=== PATIENT | female | born 1995 | race Asian ===

== ENCOUNTER → 2021-04-22 08:31 | Outpatient (BNVA) | payer SELFPAY | DX: Z02.1 Encounter for pre-employment examination (principal) ==

== ENCOUNTER 2022-10-04 21:22 | Emergency (ER) | payer OTHER, SELFPAY ==
[2022-10-04 21:35] VITALS: BP 100/65; PULSE 95; RESP 18; TEMP 36.4; O2SAT 99; BMI 18.6
--- NOTE | 2022-10-04 21:46 | ED_ITS ---
HPI - Medical Clearance General Chief complaint: Body Fluid Exposure Stated complaint: needle stick Time Seen by Provider: 10/04/22 21:45 Source: patient Mode of arrival: ambulatory Limitations: no limitations History of Present Illness HPI Narrative: 26-year-old female who presents emergency department for evaluation of a needlestick that occurred while she was injecting the patient with subcutaneous Lovenox. The patient states that the needlestick happened at 17:56 hours today. She states that she was not aware of the needlestick initially and she did take her blood soften washing hands. When she got home from work she looked at her left thumb and notice that there was a puncture wound there, she then realized that she accidentally stuck herself with the subcutaneous needle, therefore she came to the emergency department for evaluation. The patient has no medical problems. She does not take any medications. She reports that the source patient was admitted for altered mental status, UTI is waiting for placement. The source patient is on Suboxone. Source patient is [id number]. She is a 72-year-old female patient was admitted on 09/16/2022 for altered mental status secondary to urinary tract infection. Patient has a history of UTIs, depression and opiate use disorder. She is on Suboxone. No other information is available on the patient. Related Information Allergies Allergy/AdvReac Type Severity Reaction Status Date / Time No Known Allergies Allergy Verified 10/04/22 21:27 [facility] Social History Social History Advance Directives: No Advance Directives Information Provided: No Physical Exam Vital Signs: Vital Signs: Last Vital Signs Temp 97.5 F 10/04/22 21:35 Pulse 95 10/04/22 21:35 Resp 18 10/04/22 21:35 BP 100/65 10/04/22 21:35 Pulse Ox 99 10/04/22 21:35 O2 Del Method 10/04/22 21:35 BMI result Body Mass Index 18.6 Vital signs were normal General: Awake, alert, female patient, very pleasant cooperative, answers all questions appropriately Extremity: The patient has a very small puncture wound to the ulnar lateral aspect of the distal phalanx of the left thumb. 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 The patient was injecting subcutaneous Lovenox and at t hat time she felt something in her left thumb. She states she did take her gloves off and wash her hands with soap after the incident. She was not aware that she had a needlestick until she got home and she examined rhythm carefully and noticed a small puncture wound. I did tell the patient that this is probably a very low risk needlestick for HIV, hepatitis-B and hepatitis C. the patient states she has been vaccinated against hepatitis-B so this is not a concern. The source patient does have a history of opiate use disorder and is on Suboxone. The hospitalist is aware of the exposure and will test the source patient for HIV, hepatitis-B and hepatitis-C. I did discuss the risks and benefits of HIV post exposure prophylaxis and after this discussion, the patient states that she does want to start post exposure prophylaxis. Patient was ordered to get Truvada and raltegravir here in the emergency department. Patient was given a 4 day dispense pack. She was advised to stay on this medication until she can follow-up with occupational health to determine if the source patient is HIV positive. Differential Diagnosis Differential diagnosis includes but is not limited to hospital-acquired needlestick injury with risk for HIV, hepatitis-B and hepatitis C, infection. Discharge Plan Discharge Clinical Impression: Exposure to body fluid due to accidental hypodermic needlestick injury Patient Disposition: Home, Self-Care Instructions: Needle Stick Injuries (ED) Additional Instructions: I believe that this is a low risk exposure however the source patient does have a history of opiate use disorder and is on Suboxone. After our discussion about HIV post exposure prophylaxis, you want to start medications to reduce your risk alayna HIV disease. Take Truvada (emtricitabine 300 Gaspar and tenovir 200 mg) once today. Take raltegravir 400 mg pills every 12 hours You were given a 4 day supply of these medications Take these medications until you follow-up with the occupational health clinic on Thursday. You need to be on these medications until the source patient's HIV status is known. If the source patient is HIV negative then you can stop these medications. If the source patient is HIV positive then you need to be on his medications for 4-6 weeks. This treatment plan can be coordinated by the occupational health clinic You can return to work tomorrow. Call [facility] on Thursday10/06/2021 to get an appointment on Thursday for follow-up. Referrals: [facility] [Provider Group] - 10/06/22 9:00 am (Needlestick exposure at work)
[2022-10-04] MEDS: Post Exposure Medication Kit 1 KIT PO (22:09)
[2022-10-04 22:36] LABS: MANUAL DIFF FLAG NO
[2022-10-04 22:37] LABS: Basophils Percent Auto 0.5 % (0-2); Eosinophils Absolute Auto 0.1 X10*3/uL (0.0-0.4); Eosinophils Percent Auto 1.5 % (0-4); Hematocrit 38.6 % (37.0-47.0); Hemoglobin 12.9 g/dl (12.0-16.0); Imm Gran Abs Auto 0.02 X10*3/uL (0.00-0.03); Imm Gran Pct Auto 0.2 % (0.0-0.4); Lymphocytes Absolute Auto 2.3 X10*3/uL (1.2-4.9); Lymphocytes Percent Auto 28.7 % (20-40); Mean Corpuscular HGB Conc 33.4 g/dl (31.0-35.0); Mean Corpuscular Volume 92.8 fL (80.0-98.0); Mean Platelet Volume 10.2 fL (9.4-12.3); Monocytes Absolute Auto 0.8 X10*3/uL (0.1-1.2); Monocytes Percent Auto 9.3 % (2-11); Neutrophils Absolute Auto 4.8 x10*3/uL (2.0-8.3); Neutrophils Percent Auto 59.8 % (45-73); Platelet Count 197 X10*3/uL (160-400); Red Blood Count 4.16 X10*6/uL (4.20-5.50); Red Cell Distribution Width 11.6 % (11.0-16.0); White Blood Count 8.1 X10*3/uL (4.8-10.8)
--- NOTE | 2022-10-04 22:40 | PC.NURSE ---
no pain, no bleeding or drainage noted at needlestick site.
[2022-10-04 22:52] LABS: Anion Gap 10 (12-20); Blood Urea Nitrogen 10 mg/dL (9-16); Calcium 9.7 mg/dL (8.4-10.2); Carbon Dioxide 30 mmol/L (22-29); Chloride 105 mmol/L (96-108); Creatinine Clr Calc Pharmacy 98.8; Estimated Glomerular Filt Rate > 60; Glucose Random 132 mg/dL (60-115); Potassium 3.9 mmol/L (3.3-5.1); Sodium 141 mmol/L (135-145)
[2022-10-06 11:24] LABS: HBc Num1 0.11 S/CO (0.00-0.79); HBsAGNum1 0.41 S/CO (0.00-0.99); HIV AB/AG Nonreactive (Nonreactive); HIV Num 1 0.06 S/CO (0.00-0.99); Hepatitis B Core Antibody Nonreactive (Nonreactive); Hepatitis B Surface Antigen Negative (Negative); ~HepC Num1 0.08 S/CO (0.00-0.79); ~Hepatitis B Surface Antibody REACTIVE (Nonreactive); ~Hepatitis C Antibody Nonreactive (Nonreactive)
== END 2022-10-04 22:42 | disposition home or self-care (01) ==
PROVIDERS: Emergency Provider Emergency Medicine Emergency Medical Services; PCP Internal Medicine
DX: Z04.2 Encounter for examination and observation following work accident (principal); Z77.21 Contact with and (suspected) exposure to potentially hazardous body fluids
CPT/HCPCS: 36415; 80048; 85025; 86704; 86706; 86803; 87340; 87389; 99283

== ENCOUNTER → 2022-10-07 10:17 | Outpatient (BNVA) | payer OTHER, SELFPAY | PROVIDERS: PCP Internal Medicine | DX: Z13.89 Encounter for screening for other disorder (principal) | CPT/HCPCS: 99214 ==

== ENCOUNTER → 2022-11-27 12:10 | Outpatient (BNVA) | payer OTHER, SELFPAY | PROVIDERS: PCP Internal Medicine | DX: Z13.89 Encounter for screening for other disorder (principal) | CPT/HCPCS: 36415; 84450; 84460; 87389; 99213 ==

== ENCOUNTER → 2023-01-02 13:14 | Outpatient (BNVA) | payer OTHER, SELFPAY | PROVIDERS: PCP Internal Medicine | DX: Z13.89 Encounter for screening for other disorder (principal) | CPT/HCPCS: 36415; 84450; 84460; 86803; 87389; 99211 ==

== ENCOUNTER → 2023-04-03 10:02 | Outpatient (BNVA) | payer OTHER, SELFPAY | PROVIDERS: PCP Internal Medicine | CPT/HCPCS: 99211 ==